=== PATIENT | male | born 1990 ===

== ENCOUNTER 2017-07-26 09:21 | Emergency (ER) | payer OTHER ==
[2017-07-26 09:27] VITALS: BMI 25.8
[2017-07-26] MEDS ORDERED: Sodium Chloride 0.9% 1,000 ML IV STA (09:28)
[2017-07-26 09:34] VITALS: RESP 18
[2017-07-26 10:10] LABS: BASO # 0.1 K/uL (0.0-0.2); BASO % 0.6 % (0.0-2.0); EOS # 0.6 K/uL (0.0-0.7); EOS % 6.9 % (0.0-4.0); HEMOGLOBIN 16.3 g/dL (12.0-18.0); LYMPH # 2.7 K/uL (1.0-4.3); LYMPH % 32.6 % (20.0-40.0); MEAN CELL VOLUME 86.7 fl (80.0-94.0); MEAN CORPUSCULAR HEMOGLOBIN 29.4 pg (27.0-31.0); MEAN CORPUSCULAR HGB CONC 33.9 g/dL (33.0-37.0); MEAN PLATELET VOLUME 8.8 fl (7.2-11.7); MONO # 0.8 K/uL (0.0-0.8); MONO % 9.4 % (0.0-10.0); NEUT # 4.2 K/uL (1.8-7.0); NEUT % 50.5 % (50.0-75.0); NRBC % 0.2 % (0.0-0.0); RBC 5.56 Mil/uL (4.40-5.90); RED CELL DISTRIBUTION WIDTH 13.1 % (11.5-14.5); WHITE BLOOD COUNT 8.4 K/uL (4.8-10.8)
[2017-07-26 10:18] LABS: ALB/GLOB RATIO 1.2 (1.0-2.1); ALBUMIN 4.4 g/dL (3.5-5.0); ALT/SGPT 93 U/L (21-72); AST/SGOT 48 U/L (17-59); BLOOD UREA NITROGEN 13 mg/dl (9-20); CALCIUM 9.6 mg/dL (8.4-10.2); GFR AFRICAN-AMERICAN > 60; GFR NON-AFRICAN AMERICAN > 60; LIPASE 107 U/L (23-300)
--- NOTE | 2017-07-26 10:46 | CT ---
PROCEDURE: CT Abdomen and Pelvis without intravenous contrast HISTORY: upper abd pain hx cholecystectomy COMPARISON: None. TECHNIQUE: Helical CT of the abdomen and pelvis was performed without oral or intravenous contrast as per referring physician request. Contrast Dose: None Radiation dose: Total exam DLP = 891.79 mGy-cm. This CT exam was performed using one or more of the following dose reduction techniques: Automated exposure control, adjustment of the mA and/or kV according to patient size, and/or use of iterative reconstruction technique. FINDINGS: LOWER THORAX: Unremarkable. LIVER: Unremarkable. No gross lesion or ductal dilatation. GALLBLADDER AND BILE DUCTS: Gallbladder appears mildly distended with no radiodense cholelithiasis, mural thickening or pericholecystic fluid collection related. Visualized biliary tree appears normal in caliber overall. The pattern does not indicate prior cholecystectomy. PANCREAS: Unremarkable. No gross lesion or ductal dilatation. SPLEEN: Unremarkable. ADRENALS: Unremarkable. No mass. KIDNEYS AND URETERS: There are a few punctate intrarenal calculi identified both kidneys but no obstructive uropathy is evident at this time. VASCULATURE: Unremarkable. No aortic aneurysm. BOWEL: Lack of oral contrast limits evaluation of the gastrointestinal tract, however, there are several proximal to mid small bowel loops which are distended somewhat. The majority of the distal small bowel appears collapsed. A moderate amount of retained fecal material is identified at the ascending colon as well as transverse colon with the transverse segment also partially distended with gas. Distal cyst large bowel is collapsed. The overall pattern is nonspecific. APPENDIX: Unremarkable. Normal appendix. PERITONEUM: Unremarkable. No free fluid. No free air. LYMPH NODES: Unremarkable. No enlarged lymph nodes. BLADDER: Unremarkable. REPRODUCTIVE: Unremarkable. BONES: No acute fracture. OTHER FINDINGS: None. IMPRESSION: Nonspecific dilatation of proximal to mid small bowel loops is appreciated below 3 cm. Gas and retained fecal material identified at the proximal to mid large-bowel. Overall, the pattern could reflect an early ileus with obstruction less suspected. Lack of oral contrast limits evaluation. Consider follow-up abdomen radiography or contrast CT. Nonobstructing punctate intrarenal calculi bilaterally. Unremarkable appearing gallbladder.
--- NOTE | 2017-07-26 11:56 | ED PDOC ---
HPI: Abdomen Time Seen by Provider: 07/26/17 09:27 Chief Complaint (Nursing): Abdominal Pain Chief Complaint (Provider): Abdominal Pain History/Exam Limitations: no limitations Onset/Duration Of Symptoms: Sudden Onset Current Symptoms Are (Timing): Still Present Additional Complaint(s): 26 year old male with medical history of asthma, presents to the emergency department with sudden onset of lower right-sided abdominal pain radiating to back around 0700 earlier today. He also reported nausea and vomiting but denied any fever, chills, diarrhea or urinary symptoms. Patient stated he had similar episode in past in [place], which, he is unsure if he was diagnosed with kidney stones at the time. PMD: none provided Past Medical History Reviewed: Historical Data, Nursing Documentation, Vital Signs Vital Signs: Last Vital Signs Temp 98 F 07/26/17 14:34 Pulse 78 07/26/17 14:34 Resp 18 07/26/17 14:34 BP 128/78 07/26/17 14:34 Pulse Ox 98 07/26/17 14:34 - Medical History PMH: Asthma - Surgical History Surgical History: No Surg Hx - Family History Family History: States: Unknown Family Hx - Social History Current smoker - smoking cessation education provided: No Alcohol: None Drugs: Denies - Home Medications Home Medications: Ambulatory Orders Medication Instructions Recorded Ibuprofen [Motrin Tab] 600 mg PO Q6 PRN #15 tab 07/26/17 - Allergies Allergies/Adverse Reactions: Allergies Allergy/AdvReac Type Severity Reaction Status Date / Time No Known Allergies Allergy Verified 07/26/17 09:26 Review of Systems ROS Statement: Except As Marked, All Systems Reviewed And Found Negative Constitutional: Negative for: Fever, Chills Gastrointestinal: Positive for: Nausea, Vomiting, Abdominal Pain (lower right). Negative for: Diarrhea Genitourinary Male: Negative for: Dysuria, Incontinence, Hematuria Physical Exam - Reviewed Nursing Documentation Reviewed: Yes Vital Signs Reviewed: Yes - Physical Exam Appears: Positive for: Non-toxic, Uncomfortable Head Exam: Positive for: ATRAUMATIC, NORMAL INSPECTION, NORMOCEPHALIC Skin: Positive for: Normal Color Eye Exam: Positive for: Normal appearance ENT: Positive for: Normal ENT Inspection Neck: Positive for: Normal Cardiovascular/Chest: Positive for: Regular Rate, Rhythm. Negative for: Chest Non Tender Respiratory: Positive for: Normal Breath Sounds. Negative for: Decreased Breath Sounds, Respiratory Distress Gastrointestinal/Abdominal: Positive for: Normal Exam, Soft. Negative for: Tenderness Back: Positive for: R CVA Tenderness (mild). Negative for: L CVA Tenderness, Decreased ROM Extremity: Positive for: Normal ROM (upper/lower). Negative for: Pedal Edema ( bilateral) Neurologic/Psych: Positive for: Alert (x3), Oriented - Laboratory Results Result Diagrams: 07/26/17 09:50 07/26/17 09:50 - ECG O2 Sat by Pulse Oximetry: 96 (RA) Pulse Ox Interpretation: Normal Medical Decision Making Medical Decision Making: Initial Impression: RLQ pain Initial Plan: * CT AB/pelvis without contrast * CMP * Lipase * CBC * NS 1,000ml IV per 1,000mls/hr * Toradol 30mg IV * Zofran inj 4mg IV * UA ____ Time: 1044 --CT ABD/pelvis FINDINGS: LOWER THORAX: Unremarkable. LIVER: Unremarkable. No gross lesion or ductal dilatation. GALLBLADDER AND BILE DUCTS: Gallbladder appears mildly distended with no radiodense cholelithiasis, mural thickening or pericholecystic fluid collection related. Visualized biliary tree appears normal in caliber overall. The pattern does not indicate prior cholecystectomy. PANCREAS: Unremarkable. No gross lesion or ductal dilatation. SPLEEN: Unremarkable. ADRENALS: Unremarkable. No mass. KIDNEYS AND URETERS: There are a few punctate intrarenal calculi identified both kidneys but no obstructive uropathy is evident at this time. VASCULATURE: Unremarkable. No aortic aneurysm. BOWEL: Lack of oral contrast limits evaluation of the gastrointestinal tract, however, there are several proximal to mid small bowel loops which are distended somewhat. The majority of the distal small bowel appears collapsed. A moderate amount of retained fecal material is identified at the ascending colon as well as transverse colon with the transverse segment also partially distended with gas. Distal cyst large bowel is collapsed. The overall pattern is nonspecific. APPENDIX: Unremarkable. Normal appendix. PERITONEUM: Unremarkable. No free fluid. No free air. LYMPH NODES: Unremarkable. No enlarged lymph nodes. BLADDER: Unremarkable. REPRODUCTIVE: Unremarkable. BONES: No acute fracture. OTHER FINDINGS: None. IMPRESSION: Nonspecific dilatation of proximal to mid small bowel loops is appreciated below 3 cm. Gas and retained fecal material identified at the proximal to mid large-bowel. Overall, the pattern could reflect an early ileus with obstruction less suspected. Lack of oral contrast limits evaluation. Consider follow-up abdomen radiography or contrast CT. Nonobstructing punctate intrarenal calculi bilaterally. Unremarkable appearing gallbladder. UA reveals ++RBC Re-eval 110p- improved, denies nausea/vomiting and pain is mostly resolved. + hunger/ Explained CT findings and liklihood of renal colic given hematuria, sudden onset pain, and rapid relief of pain. Explained less likelihood, although not zero liklihood, of early appendicitis, but he wants to leave and see how he feels over next 6-12hrs. Indications for Return to ER explained Scribe Attestation: Documented by Gali Gifford, acting as a scribe for Tee King III, DO. Provider Scribe Attestation: All medical record entries made by the Scribe were at my direction and personally dictated by me. I have reviewed the chart and agree that the record accurately reflects my personal performance of the history, physical exam, medical decision making, and the department course for this patient. I have also personally directed, reviewed, and agree with the discharge instructions and disposition. Disposition - Clinical Impression Clinical Impression: Abdominal pain, Hematuria Counseled Patient/Family Regarding: Studies Performed, Diagnosis, Need For Followup, Rx Given - Disposition Referrals: Nate Reddy MD [Staff Provider] - Disposition: Routine/Home Disposition Time: 14:01 Condition: FAIR Additional Instructions: Take medication as directed Return to ER for any worse or new symptoms Prescriptions: Ibuprofen [Motrin Tab] 600 mg PO Q6 PRN #15 tab PRN Reason: Pain, Moderate (4-7) Instructions: Blood in the Urine (Hematuria) in Adults, Flank Pain, Acute Abdomen (Belly Pain), Adult (DC) Forms: [employer] (Romans[facility])
[2017-07-26 12:26] LABS: SQUAMOUS EPITHIAL < 1 /hpf (0-5); URINE AMORPHOUS SEDIMENT RARE /ul (<OCC); URINE BILIRUBIN NEGATIVE (NEGATIVE); URINE BLOOD LARGE (NEGATIVE); URINE CLARITY TURBID (Clear); URINE COLOR AMBER (YELLOW); URINE GLUCOSE (UA) NEG (Normal); URINE LEUKOCYTE ESTERASE NEG Leu/uL (Negative); URINE PROTEIN 100 mg/dL (NEGATIVE); URINE UROBILINOGEN 0.2-1.0 mg/dL (0.2-1.0)
[2017-07-26 14:35] VITALS: BP 128/78; PULSE 78; TEMP 98
[2017-07-27 16:32] VITALS: O2SAT 96
== END 2017-07-26 14:37 | disposition home or self-care (01) ==
LOC: H.ER 09:21
DX: R31.9 Hematuria, unspecified (principal); R10.9 Unspecified abdominal pain
CPT/HCPCS: 74176; 80053; 81003; 83690; 85025; 96374; 96375; 99282; J1885; J2405; J7040